=== PATIENT | male | born 1975 | race Caucasian/White ===

== ENCOUNTER 2018-04-17 16:26 | Emergency (ER) | payer OTHER ==
[~2018-04-17] VITALS: Ht 182.9 cm; Wt 87.4 kg
[2018-04-17 16:48] VITALS: BP 113/76
[2018-04-17 17:22] LABS: HCT (SEDRATE) 46.6 % (39.2-51.8)
[2018-04-17 18:59] LABS: BASOPHILS # (AUTO) 0.03 x10^3/uL (0-0.1); BASOPHILS % (AUTO) 1 % (0-1); EOSINOPHILS # (AUTO) 0.13 x10^3/uL (0-0.4); EOSINOPHILS % (AUTO) 2 % (1-7); LYMPHOCYTES # (AUTO) 1.68 x10^3/uL (1-3.4); LYMPHOCYTES % (AUTO) 27 % (22-44); MD NO; MEAN CORPUSCULAR HEMOGLOBIN 32.5 pg (27.5-34.5); MEAN CORPUSCULAR HGB CONC 34.3 g/dL (33.2-36.2); MEAN CORPUSCULAR VOLUME 94.6 fL (81-97); MEAN PLATELET VOLUME 8.7 fL (7.4-10.4); MONOCYTES # (AUTO) 0.35 x10^3/uL (0.2-0.8); MONOCYTES % (AUTO) 6 % (2-9); NEUTROPHILS % (AUTO) 65 % (42-75); PLATELET COUNT 286 x10^3/uL (130-400); RED BLOOD COUNT 4.98 x10^6/uL (4.38-5.82); RED CELL DISTRIBUTION WIDTH 12.6 % (9.4-14.8)
[2018-04-17] MEDS ORDERED: LIDOCAINE 1%, 10ML INFIL ONE (19:00)
[2018-04-17] MEDS ORDERED: LIDOCAINE-MPF 1%, 5ML ONE (19:01)
[2018-04-17 19:10] LABS: ANION GAP 12 mmol/L (5-15); CALCIUM 8.8 mg/dL (8.5-10.1); CHLORIDE 104 mmol/L (98-107); CREATININE 1.01 mg/dL (0.7-1.3)
== END 2018-04-17 20:06 | disposition home or self-care (01) ==
LOC: ED 19:00
DX: M13.171 Monoarthritis, not elsewhere classified, right ankle and foot (principal); M10.9 Gout, unspecified
CPT/HCPCS: 20605; 36415; 80048; 83605; 84145; 85025; 85651; 86140; 87040; 87070; 87205; 89051; 89060; 99285

== ENCOUNTER 2020-01-06 09:10 | Outpatient (CLI) | payer OTHER ==
[2020-01-06] MEDS ORDERED: IBUP200T64 PO (09:50)
[2020-01-06] MEDS ORDERED: ASCO10004 PO (09:50)
[2020-01-06] MEDS ORDERED: CYAN25009 PO (09:50)
[2020-01-06] MEDS ORDERED: COLC0.6T47 PO (09:50)
[2020-01-06] MEDS ORDERED: CHOL10003 PO (09:50)
[2020-01-06] MEDS ORDERED: ALLO300T PO (09:50)
[2020-01-06] MEDS ORDERED: MAGN400T36 PO (09:50)
== END 2020-01-06 23:59 | disposition home or self-care (01) ==
LOC: STAR 09:10
PROVIDERS: ATTEND Orthopaedic Surgery
DX: Z02.9 Encounter for administrative examinations, unspecified (principal)

== ENCOUNTER 2020-01-11 10:58 | Day surgery (SDC) | payer OTHER ==
[~2020-01-11] VITALS: Ht 182.9 cm; Wt 89.8 kg
[~2020-01-11 10:58] MED LIST: ALLO300T PO; ASCO10004 PO; CHOL10003 PO; COLC0.6T47 PO; CYAN25009 PO; IBUP200T64 PO; MAGN400T36 PO
[2020-01-11] MEDS ORDERED: FENTANYL PF 250 MCG/5ML ONE (11:24)
[2020-01-11] MEDS ORDERED: MIDAZOLAM 1 MG/ML, 2ML ONE (11:24)
[2020-01-11 11:27] VITALS: BP 122/85
[2020-01-11] MEDS ORDERED: GABAPENTIN 300 MG CAPSULE PO ONE (11:30)
[2020-01-11] MEDS ORDERED: ACETAMINOPHEN 500 MG TABLET PO ONE (11:30)
[2020-01-11] MEDS ORDERED: LACTATED RINGERS 1,000 ML IV SCH (12:10)
[2020-01-11] MEDS ORDERED: LIDOCAINE-MPF 1%, 2ML ONE ×2 (12:12)
[2020-01-11] MEDS ORDERED: EPINEPHRINE 1 MG/ML, 1ML ONE (12:13)
[2020-01-11] MEDS ORDERED: BUPIVACAINE/PF 0.25% ONE (12:13)
[2020-01-11] MEDS ORDERED: KETAMINE 10 MG/ML, 20ML ONE (12:20)
[2020-01-11] MEDS ORDERED: PROMETHAZINE 25 MG/ML, 1ML IV PRN (13:30)
[2020-01-11] MEDS ORDERED: HYDROmorphone 2 MG/ML, 1ML IVPush PRN (13:30)
[2020-01-11] MEDS ORDERED: hydrALAzine 20 MG/ML, 1ML IV PRN (13:30)
[2020-01-11] MEDS ORDERED: ALBUTEROL/IPRATROPIUM 2.5MG/0.5MG, 3 ML NPPB PRN (13:30)
[2020-01-11] MEDS ORDERED: MEPERIDINE/PF 25MG/ML,1ML IVPush PRN (13:30)
[2020-01-11] MEDS ORDERED: METOPROLOL 1 MG/ML, 5ML IV PRN (13:30)
[2020-01-11] MEDS ORDERED: OXYcodone 5 MG/5 ML ORAL.SOL UDC PO PRN (13:30)
[2020-01-11] MEDS ORDERED: MIDAZOLAM 1 MG/ML, 2ML IV PRN (13:30)
[2020-01-11] MEDS ORDERED: CEFAZOLIN 1,000 MG ONE (13:58)
[2020-01-11] MEDS ORDERED: PROPOFOL 10 MG/ML, 20ML ONE (13:58)
[2020-01-11] MEDS ORDERED: DEXAMETHASONE 4 MG/ML, 1ML ONE (13:58)
[2020-01-11] MEDS ORDERED: BUPIVACAINE/PF 0.5% ONE (13:58)
[2020-01-11] MEDS ORDERED: ONDANSETRON 2MG/ML, 2ML ONE (13:58)
[2020-01-11] MEDS ORDERED: LIDOCAINE-MPF 2% ,5ML ONE (13:58)
[2020-01-11] MEDS ORDERED: KETOROLAC 30 MG/1 ML ONE (13:58)
[2020-01-11] MEDS ORDERED: OXYcodone 5 MG/5 ML ORAL.SOL UDC ONE (14:31)
[2020-01-11] MEDS ORDERED: FENTANYL PF 100 MCG/2ML ONE (14:31)
[2020-01-11] MEDS: FENTANYL PF 100 MCG/2ML IV PRN ×2 (14:45→15:02)
== END 2020-01-11 17:48 | disposition home or self-care (01) ==
LOC: OUT 10:58
PROVIDERS: ATTEND Orthopaedic Surgery
DX: M93.272 Osteochondritis dissecans, left ankle and joints of left foot (principal); M1A.9XX1 Chronic gout, unspecified, with tophus (tophi); Z79.1 Long term (current) use of non-steroidal anti-inflammatories (NSAID); Z79.899 Other long term (current) drug therapy; Z98.890 Other specified postprocedural states
CPT/HCPCS: 27415; 64447; C1762; J0690; J1100; J1885; J2250; J2405; J2704; J3010; J7120; J0171; J3490